=== PATIENT | female | born 1965 | race Caucasian/White ===

== ENCOUNTER 2022-05-05 13:41 | Outpatient (CLI) | payer OTHER, SELFPAY ==
--- NOTE | 2022-05-05 14:00 | CRLHL7_ITS ---
For Patients: As a result of the Cures Act, medical imaging exams and procedure reports are released immediately into your electronic medical record. You may view this report before your referring provider. If you have questions, please contact your health care provider. BILATERAL SCREENING MAMMOGRAM WITH COMPUTER-AIDED DETECTION AND TOMOSYNTHESIS TECHNIQUE: CC and MLO views were obtained. These mammographic images have been obtained using full-field digital technique. These mammographic images were interpreted with the benefit of computer-aided detection. Breast tomosynthesis was used in this interpretation. COMPARISON FILM: 04/08/21, 02/23/20, 10/05/18. FINDINGS: There are scattered areas of fibroglandular density. IMPRESSION: There is no radiographic evidence for malignancy. ASSESSMENT: BI-RADS Category 1: Negative RECOMMENDATION: Routine screening mammogram in 1 year. A lay language report of this examination will be provided to the patient. MANAV BOONE M.D. Diagnostic Radiologist [email or web address] IRENE/[email or web address] Transcribed: 05/06/2022, 1:[address]/Dictated by: Manav Boone MD @ 05/06/2022 12:29:00 PM (Electronically Signed)
== END 2022-05-05 13:42 | disposition home or self-care (01) ==
PROVIDERS: PCP Physician Assistant Medical; Visit Provider Physician Assistant Medical
DX: Z12.31 Encounter for screening mammogram for malignant neoplasm of breast (principal)
CPT/HCPCS: 77063; 77067

== ENCOUNTER 2022-05-15 07:53 | Outpatient (CLI) | payer OTHER, SELFPAY | END 2022-05-15 07:54 | disposition home or self-care (01) | PROVIDERS: PCP Physician Assistant Medical; Visit Provider Physician Assistant Medical | DX: Z01.419 Encounter for gynecological examination (general) (routine) without abnormal findings (principal); R53.83 Other fatigue; Z13.6 Encounter for screening for cardiovascular disorders | CPT/HCPCS: 80053; 80061; 82306; 82607; 82728; 84443; 86618 ==

== ENCOUNTER 2023-01-23 08:48 | Outpatient (CLI) | payer OTHER, SELFPAY ==
--- NOTE | 2023-01-23 09:00 | CRLHL7_ITS ---
For Patients: As a result of the Century Cures Act, medical imaging exams and procedure reports are released immediately into your electronic medical record. You may view this report before your referring provider. If you have questions, please contact your health care provider. INDICATION: Chronic maxillary sinusitis. TECHNIQUE: Thin-slice noncontrast CT of the paranasal sinuses with bone and soft tissue reconstruction. 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 FINDINGS: Clear right and hypoplastic left frontal sinus. Frontal recesses and agger nasi cells are patent. Maxillary sinuses are clear with diffuse maxillary sinus wall hyperostosis. An accessory right maxillary ostium is noted. The ostiomeatal complexes are clear. The anterior and posterior ethmoid air cells are clear. The sphenoid sinuses and ostia are clear. The nasal septum is essentially midline with no spur. The orbits are within normal limits. The nasopharynx and visualized oropharynx are unremarkable in appearance. IMPRESSION: 1. Essentially clear paranasal sinuses. 2. Maxillary sinus wall hyperostosis may reflect sequela of chronic sinusitis. Please note that all CT scans at this facility use dose modulation, iterative reconstruction, and/or weight-based dosing when appropriate to reduce radiation dose to as low as reasonably achievable. Dictated by Nito Melissa MD @ 01/25/2023 1:33:38 PM (Electronically Signed)
== END 2023-01-23 08:49 | disposition home or self-care (01) ==
LOC: CT 08:49
PROVIDERS: PCP Physician Assistant Medical; Visit Provider Physician Assistant Medical
DX: J32.0 Chronic maxillary sinusitis (principal); G50.0 Trigeminal neuralgia
CPT/HCPCS: 70486

== ENCOUNTER 2023-02-04 09:14 | Outpatient (CLI) | payer OTHER, SELFPAY | END 2023-02-04 09:15 | disposition home or self-care (01) | PROVIDERS: PCP Physician Assistant Medical; Visit Provider Physician Assistant Medical | DX: E04.9 Nontoxic goiter, unspecified (principal) | CPT/HCPCS: 84443 ==

== ENCOUNTER 2023-02-10 14:40 | Outpatient (CLI) | payer OTHER, SELFPAY ==
--- NOTE | 2023-02-10 15:00 | CRLHL7_ITS ---
For Patients: As a result of the Century Cures Act, medical imaging exams and procedure reports are released immediately into your electronic medical record. You may view this report before your referring provider. If you have questions, please contact your health care provider. INDICATION: enlarged firmness right upper thyroid lobe COMPARISON: none TECHNIQUE: Zuniga scale and color Doppler images were acquired of the thyroid gland. FINDINGS: The thyroid gland demonstrates mildly heterogeneous echogenicity and has a smooth outer contour. The right lobe measures 4.9 x 1.3 x 1.5 cm and the left lobe measures 4.0 x 0.9 x 1.6 cm in size. The isthmus measures 2 millimeters. Small partially hypoechoic nodule midportion right thyroid lobe measuring 4 x 2 x 3 millimeters. The color Doppler images demonstrate normal vascularity. There is no evidence of cervical lymphadenopathy or parathyroid mass. IMPRESSION: Subcentimeter right thyroid lobe nodule. No further follow-up indicated. No suspicious nodule. Dictated by Manav Tatum MD @ 02/11/2023 10:49:23 AM (Electronically Signed)
== END 2023-02-10 14:41 | disposition home or self-care (01) ==
LOC: US 14:41
PROVIDERS: PCP Physician Assistant Medical; Visit Provider Physician Assistant Medical
DX: E04.9 Nontoxic goiter, unspecified (principal)
CPT/HCPCS: 76536

== ENCOUNTER 2023-06-12 11:21 | Outpatient (CLI) | payer OTHER, SELFPAY ==
--- NOTE | 2023-06-12 11:30 | MM_ITS ---
Patient: CARMEN QUIÑONES Facility:?[facility] Patient ID:?[id number] Site Patient ID:?[id number]. Site :?[id number] Study:?XRay-Breast Bilateral 3D W/CAD-06/12/2023 3:38:38 PM Ordering Physician:?LETY BRAN Final Report: BILATERAL SCREENING MAMMOGRAM WITH COMPUTER-AIDED DETECTION AND TOMOSYNTHESIS TECHNIQUE: CC and MLO views were obtained. These mammographic images have been obtained using full-field digital technique. These mammographic images were interpreted with the benefit of computer-aided detection. Breast Tomosynthesis was used in this interpretation. COMPARISON FILM: 05/05/22, 04/08/21, 02/23/20. FINDINGS: There are scattered areas of fibroglandular density. IMPRESSION: There is no radiographic evidence for malignancy. ASSESSMENT: BI-RADS Category 1: Negative RECOMMENDATION: Routine screening mammogram in 1 year. A lay language report of this examination will be provided to the patient. Manav Tatum M.D. Diagnostic Radiologist [email or web address] DSM/sp R& Transcribed: 3:19 p.m. SP/Dictated by: Manav Tatum MD @ 06/15/2023 11:00:00 AM Signed by:?Manav Tatum MD @06/15/2023 3:21:05 PM (Electronic Signature)
== END 2023-06-12 11:22 | disposition home or self-care (01) ==
LOC: MAMMO 11:21
PROVIDERS: PCP Physician Assistant Medical; Visit Provider Physician Assistant Medical
DX: Z12.31 Encounter for screening mammogram for malignant neoplasm of breast (principal)
CPT/HCPCS: 77063; 77067

== ENCOUNTER 2024-03-02 14:21 | Outpatient (REF) | payer OTHER, SELFPAY ==
[2024-03-02 15:16] LABS: Basophils Percent Auto 0.3 % (0.0-3.0); Eosinophils Percent Auto 2.1 % (0.0-7.0); Hematocrit 41.8 % (33.0-51.0); Hemoglobin* 14.1 gm/dL (12.0-16.0); Immature Granulocytes Pct Auto 0.3 %; Lymphocytes Percent Auto 39.9 % (20-44); Mean Corpuscular HGB Conc 34 gm/dL (32-36); Mean Corpuscular Hemoglobin 31 pg (26-34); Mean Corpuscular Volume 92 fL (80-100); Monocytes Percent Auto 8.2 % (0.0-11.0); Neutrophils Percent Auto 49.2 % (42.0-72.0); Platelet Count* 278 K/uL (140-440); RDW Coefficient of Variation % 11.7 % (11.5-15.5); Red Blood Count 4.53 m/uL (4.00-5.20); White Blood Count* 3.76 K/uL (4.50-11.00)
[2024-03-02 15:23] LABS: Slide Review Reflex No
[2024-03-02 15:47] LABS: Albumin* 4.6 g/dL (3.3-5.0); Chloride* 101 mmol/L (96-114)
[2024-03-02 15:48] LABS: Potassium* 4.6 mmol/L (3.6-5.1); Sodium* 135 mmol/L (135-149)
[2024-03-02 15:50] LABS: Alkaline Phosphatase* 71 U/L (40-150); Anion Gap 8 mEq/L (7-15); Aspartate Amino Transferase* 32 U/L (12-35); Bilirubin Total* 0.4 mg/dL (0.1-1.5); Blood Urea Nitrogen* 11 mg/dL (7-30); Carbon Dioxide* 26 mmol/L (20-32); Creatinine* 0.7 mg/dL (0.5-1.5); Estimated Glomerular Filt Rate 101 ml/min; Glucose* 86 mg/dL (60-115); Total Protein* 7.2 g/dL (6.0-8.3)
[2024-03-02 15:51] LABS: Alanine Aminotransferase* 34 U/L (4-35); Calcium* 9.3 mg/dL (8.4-10.6)
== END 2024-03-02 14:22 | disposition home or self-care (01) ==
LOC: NPINS 14:21
PROVIDERS: PCP Physician Assistant Medical; Visit Provider Psychiatry & Neurology Neurology
DX: G50.1 Atypical facial pain (principal); Z51.81 Encounter for therapeutic drug level monitoring
CPT/HCPCS: 80053; 85025

== ENCOUNTER 2024-03-09 09:35 | Outpatient (CLI) | payer OTHER, SELFPAY | END 2024-03-09 09:36 | disposition home or self-care (01) | LOC: FRMREF 09:36 | PROVIDERS: PCP Physician Assistant Medical; Visit Provider Physician Assistant Medical | DX: E04.9 Nontoxic goiter, unspecified (principal); Z13.6 Encounter for screening for cardiovascular disorders; Z13.1 Encounter for screening for diabetes mellitus; Z83.49 Family history of other endocrine, nutritional and metabolic diseases | CPT/HCPCS: 80061; 82947; 84439; 84443; 84481 ==

== ENCOUNTER 2024-09-07 15:06 | Outpatient (CLI) | payer OTHER, SELFPAY ==
--- NOTE | 2024-09-07 15:20 | CRLHL7_ITS ---
For Patients: As a result of the Century Cures Act, medical imaging exams and procedure reports are released immediately into your electronic medical record. You may view this report before your referring provider. If you have questions, please contact your health care provider. INDICATION: BILATERAL SCREENING MAMMOGRAM, ASYMPOTMATIC 58 Y/O FEMALE COMPARISON: 06/12/2023, 05/05/2022, 04/08/2021 TECHNIQUE: Digital mammogram in CC and MLO projections including computer-aided detection (CAD) and tomosynthesis. BREAST COMPOSITION: There are scattered areas of fibroglandular density. FINDINGS: No suspicious findings. ASSESSMENT: BI-RADS 1 Negative RECOMMENDATION: Annual screening mammogram. A lay language report of this examination will be provided to the patient. Dictated by: Tammy Cary MD @ 09/10/2024 14:19:05 (Electronically Signed)
== END 2024-09-07 15:07 | disposition home or self-care (01) ==
LOC: MAMMO 15:06
PROVIDERS: PCP Physician Assistant Medical; Visit Provider Physician Assistant Medical
DX: Z12.31 Encounter for screening mammogram for malignant neoplasm of breast (principal)
CPT/HCPCS: 77063; 77067